=== PATIENT | male | born 1950 | race Caucasian/White ===

== ENCOUNTER 2018-05-30 09:45 | Day surgery (SDC) | payer BC ==
[2018-05-30] MEDS ORDERED: PROPOFOL 60 ML (11:32)
[2018-05-30] MEDS ORDERED: LIDOCAINE 2% (SDV) 5 ML INJ (11:32)
== END 2018-05-30 15:19 | disposition home or self-care (01) ==
LOC: GIL 09:45
DX: Z12.11 Encounter for screening for malignant neoplasm of colon (principal); K29.50 Unspecified chronic gastritis without bleeding; D12.5 Benign neoplasm of sigmoid colon; K29.80 Duodenitis without bleeding; K20.8 Other esophagitis; K64.4 Residual hemorrhoidal skin tags; J44.9 Chronic obstructive pulmonary disease, unspecified; F17.200 Nicotine dependence, unspecified, uncomplicated; E66.9 Obesity, unspecified; Z68.34 Body mass index [BMI] 34.0-34.9, adult
CPT/HCPCS: 43239; 88305; 88312